=== PATIENT | male | born 1975 | race Caucasian/White ===

== ENCOUNTER 2016-05-29 09:17 | Day surgery (SDC) | payer OTHER ==
[2016-05-27 16:32] VITALS: BMI 31.3
--- NOTE | 2016-05-29 11:18 | HP ---
History & Physical Update - History History: No Change - Physical Physical: No Change - Assessment Assessment: No Change - Plan Plan: No Change
--- NOTE | 2016-05-29 11:20 | OP ---
Operative Note - Note: Operative Date: 05/29/16 Pre-Operative Diagnosis: L ureteral calculus Operation: cystoscopy and L JJ stent removal Findings: indwelling L JJ stent Post-Operative Diagnosis: Same as Pre-op Surgeon: Juan Sandra Anesthesiologist/CODING COMPLIANCE AUDITOR: Yanelis Espinosa MD Anesthesia: Local, Fractional Specimens Removed: L JJ stent Estimated Blood Loss (mls): 0
[2016-05-29] MEDS ORDERED: LIDOCAINE HCL 2% JELLY 10 ML CARTRIDGE ONE (12:12)
[2016-05-29] MEDS ORDERED: oxyCODONE HCL 5 MG TABLET PO PRN (12:20)
[2016-05-29] MEDS ORDERED: PROMETHAZINE HCL 25 MG/1 ML VIAL IVPUSH PRN (12:20)
[2016-05-29] MEDS ORDERED: ONDANSETRON 4 MG/2 ML VIAL IVPUSH PRN (12:20)
[2016-05-29] MEDS ORDERED: LACTATED RINGERS SOLUTION 1,000 ML IV SCH (12:30)
[2016-05-29] MEDS ORDERED: PROPOFOL 20 ML ONE (12:31)
[2016-05-29] MEDS ORDERED: MIDAZOLAM HCL 2 MG/2 ML SINGLE DOSE VIAL ONE (12:31)
[2016-05-29] MEDS ORDERED: ceFAZolin SODIUM 1 GM VIAL IVPB ONE (12:37)
[2016-05-29] MEDS ORDERED: LIDOCAINE HCL 2% JELLY 10 ML CARTRIDGE TP ONE (12:44)
[2016-05-29 14:47] VITALS: BP 100/67; PULSE 78; TEMP 98.3
--- NOTE | 2016-05-30 06:54 | OP ---
DATE OF OPERATION: 05/29/2016 PREOPERATIVE DIAGNOSIS: Left ureteral calculus. POSTOPERATIVE DIAGNOSIS: Left ureteral calculus. PROCEDURE: Cystoscopy, left double-J stent removal. SURGEON: Juan Sandra MD PREPARATOR: None. ANESTHESIA: IV sedation plus local. ANESTHESIOLOGIST: Yanelis Espinosa MD SPECIMENS: Left double-J stent. CULTURES: None. DRAINS: None. ESTIMATED BLOOD LOSS: None. COMPLICATIONS: None. DESCRIPTION OF PROCEDURE: The patient was brought into the operating room and placed on the operating room table in a supine position. After administration of intravenous antibiotics, intravenous sedation was administered, and the genitals and perineum were prepped and draped in the usual sterile manner. A No. 23-Nauruan/ cystoscope with 30-degree telescope was inserted into the anterior urethra under direct vision. The anterior urethra was normal. The prostatic urethra was normal. The bladder was entered. Left double-J stent was grasped with the grasping forceps and removed. The patient tolerated the procedure well. She entered the recovery room in stable condition. Will be followed in the office in 1 month. Maddie [id number]
--- NOTE | 2016-06-01 12:18 | PATH ---
Surgical Pathology Report Patient Name: SOPHIA PACHECO Med. Rec. #: [id number] /Age/Gender: 1975 (Age: 40) / M Account: [id number] Location: [facility] SUR[facility] Taken: 05/29/2016 Received: 05/29/2016 Reported: 06/01/2016 Physicians: Juan Sandra M.D. Specimen(s) Received LEFT JJ STENT Clinical History Calculus of left ureter Final Diagnosis LEFT JJ STENT, REMOVAL: STENT (GROSS EXAM). Electronically Signed Khadar Carroll M.D. Gross Description Received fresh, labeled "left JJ stent" is a 36 cm in length blue, coiled portion of tubing, consistent with a stent. No soft tissue is present. No sections are submitted, gross only. /05/29/201605/29/2016
== END 2016-05-29 14:50 | disposition home or self-care (01) ==
LOC: JASU-SURG 09:17
PROVIDERS: ATTEND Urology
PROC: 0TP98DZ Removal of Intraluminal Device from Ureter, Via Natural or Artificial Opening Endoscopic (ICD-10-PCS; principal; 2016-05-29 13:00)
DX: N20.1 Calculus of ureter (principal)
CPT/HCPCS: 88300-TC; 94760